=== PATIENT | female | born 1960 | race Caucasian/White ===

== ENCOUNTER 2016-10-26 06:16 | Day surgery (SDC) | payer OTHER ==
[2016-10-26] MEDS ORDERED: Sodium Chloride 0.9% 10 ML Syringe FLUSH PRN (07:00)
[2016-10-26] MEDS ORDERED: Lactated Ringers 1,000 ML IV SCH (07:00)
[2016-10-26] MEDS ORDERED: Lidocaine 1%/Sod Bicarbonate in NS 8.4% 1 ML Syringe PRN (07:00)
[2016-10-26] MEDS ORDERED: Lidocaine 1% 30 ML SDV ONE (07:04)
[2016-10-26] MEDS ORDERED: Bupivacaine 0.25% 10 ML SDV ONE (07:04)
[2016-10-26] MEDS ORDERED: fentaNYL 100 MCG/2 ML SDV ONE (07:15)
[2016-10-26] MEDS ORDERED: Lidocaine 1% 4 ML ONE (07:15)
[2016-10-26] MEDS ORDERED: Propofol 200 MG/20 ML SDV ONE ×2 (07:15→07:55)
[2016-10-26] MEDS ORDERED: Midazolam 1 MG/ML 2 ML SDV ONE (07:15)
--- NOTE | 2016-10-26 08:13 | PCM.PREANE ---
Preanesthetic Assessment - Anesthesia/Transfusion/Family Hx Anesthesia History: Prior Anesthesia Without Reaction Family History of Anesthesia Reaction: No Transfusion History: No Prior Transfusion(s) - Review of Systems General: No Symptoms Pulmonary: No Symptoms Cardiovascular: No Symptoms Gastrointestinal: No symptoms Neurological: Numbness (left hand) Other: Reports: None, Diabetes (does not check blood sugers) - Physical Assessment NPO Status Date: 10/25/16 NPO Status Time: 19:30 Pulse: 55 O2 Sat by Pulse Oximetry: 95 Respiratory Rate: 16 Blood Pressure: 125/62 Temperature: 36.3 C Vital Signs: Last Vital Signs Temp 36.3 C 10/26/16 06:20 Pulse 55 L 10/26/16 06:20 Resp 16 10/26/16 06:20 BP 125/62 10/26/16 06:20 Pulse Ox 95 10/26/16 06:20 Height: 1.7 m Weight: 109.769 kg ASA Class: 2 Mental Status: Alert & Oriented x3 Airway Class: Mallampati = 1 Dentition: Reports: Normal Dentition Thyro-Mental Finger Breadths: 3 Mouth Opening Finger Breadths: 3 ROM/Head Extension: Full Lungs: Clear to auscultation, Normal respiratory effort Cardiovascular: Regular Rate, Regular Rhythm, No Murmurs - Allergies Allergies/Adverse Reactions: Allergies Allergy/AdvReac Type Severity Reaction Status Date / Time No Known Allergies Allergy Verified 10/25/16 13:31 - Blood Blood Available: No Product(s) Available: None - Anesthesia Plan Pre-Op Medication Ordered: None - Acknowledgements Anesthesia Type Planned: MAC Pt an Appropriate Candidate for the Planned Anesthesia: Yes Alternatives and Risks of Anesthesia Discussed w Pt/Guardian: Yes Pt/Guardian Understands and Agrees with Anesthesia Plan: Yes PreAnesthesia Questionnaire HEENT History: Reports: Allergic rhinitis Other HEENT History: has glasses, partial Cardiovascular History: Reports: SOB on exertion Respiratory History: Reports: Asthma, Sleep apnea Gastrointestinal History: Reports: GERD Genitourinary History: Reports: None Musculoskeletal History: Reports: Arthritis Neurological History: Reports: None Psychiatric History: Reports: Other (see below) Other Psychiatric History: irritability Endocrine/Metabolic History: Reports: Diabetes, type II - Past Surgical History HEENT Surgical History: Reports: Other (see below) Other HEENT Surgeries/Procedures: sinus surgery GI Surgical History: Reports: Colonoscopy Female Surgical History: Reports: Hysterectomy, Oophorectomy Musculoskeletal Surgical History: Reports: Carpal tunnel, Other (see below) Other Musculoskeletal Surgeries/Procedures:: knee surgery - SUBSTANCE USE Smoking Status *Q: Current Every Day Smoker (1/2 PPD+ X 40 yrs) Tobacco Use Within Last Twelve Months: Cigarettes Second Hand Smoke Exposure: Yes Days Per Week of Alcohol Use: 0 Number of Drinks Per Day: 0 Total Drinks Per Week: 0 Recreational Drug Use History: No - HOME MEDS Home Medications: Home Meds Albuterol [Ventolin HFA] 1 - 2 puff INH Q4H PRN 08/23/16 [History] Sertraline [Zoloft] 1 tab PO DAILY 08/23/16 [History] metFORMIN [Glucophage XR] 1 tab PO DAILY 08/23/16 [History] Esomeprazole Magnesium [Nexium] 20 mg PO DAILY 10/25/16 [History] - CURRENT (IN HOUSE) MEDS Current Meds: Current Medications Lactated Ringer's (Ringers, Lactated) 1,000 mls @ 125 mls/hr IV ASDIRECTED SELVIN Stop: 10/26/16 23:00 Last Admin: 10/26/16 06:40 Dose: 125 mls/hr Lidocaine/Sodium Bicarbonate (Buffered Lidocaine 1% In Ns 8.4%) 0.25 ml .XX ONETIME PRN PRN Reason: Prior to IV Start Stop: 10/26/16 18:00 Last Admin: 10/26/16 06:40 Dose: 0.25 ml Sodium Chloride (Saline Flush) 10 ml FLUSH ASDIRECTED PRN PRN Reason: Keep Vein Open Stop: 10/26/16 18:00 Discontinued Medications Bupivacaine HCl (Sensorcaine-Mpf 0.25%) Confirm Administered Dose 10 ml .ROUTE .STK-MED ONE Stop: 10/26/16 07:05 Fentanyl (Sublimaze) Confirm Administered Dose 100 mcg .ROUTE .STK-MED ONE Stop: 10/26/16 07:16 Lidocaine HCl (Xylocaine-Mpf 1%) Confirm Administered Dose 4 mls @ as directed .ROUTE .STK-MED ONE Stop: 10/26/16 07:16 Lidocaine HCl (Xylocaine-Mpf 1%) Confirm Administered Dose 30 ml .ROUTE .STK- MED ONE Stop: 10/26/16 07:05 Midazolam HCl (Versed 1 Mg/Ml) Confirm Administered Dose 2 mg .ROUTE .STK-MED ONE Stop: 10/26/16 07:16 Propofol (Diprivan 20 Ml) Confirm Administered Dose 200 mg .ROUTE .STK-MED ONE Stop: 10/26/16 07:16 Propofol (Diprivan 20 Ml) Confirm Administered Dose 200 mg .ROUTE .STK-MED ONE Stop: 10/26/16 07:56 Preanesthetic Assessment - ANESTHESIA/TRANSFUSION/FAMILY HX Anesthesia/Transfusion History: Prior Anesthesia Family History of Anesthesia Reaction: No Intubation History: Unknown - PHYSICAL ASSESSMENT O2 Sat by Pulse Oximetry: 95 RR: 16 Vital Signs: Last Vital Signs Temp 36.3 C 10/26/16 06:20 Pulse 55 L 10/26/16 06:20 Resp 16 10/26/16 06:20 BP 125/62 10/26/16 06:20 Pulse Ox 95 10/26/16 06:20 Height: 1.7 m Weight: 109.769 kg NPO Status Date: 10/25/16 NPO Status Time: 19:30 - ALLERGIES Allergies/Adverse Reactions: Allergies Allergy/AdvReac Type Severity Reaction Status Date / Time No Known Allergies Allergy Verified 10/25/16 13:31
[2016-10-26 08:22] VITALS: BP 119/75
--- NOTE | 2016-10-31 11:40 | PCM.OPNOTE ---
- General Post-Op/Procedure Note Date of Surgery/Procedure: 10/26/16 Operative Procedure(s): left carpal tunnel release Pre Op Diagnosis: left median nerve compression neuropathy Post-Op Diagnosis: Same Anesthesia Technique: Local, MAC Primary Surgeon: Mitch Gutierrez Anesthesia Provider: Roberto Carlos Blanca [employer] Director: Tova Cantu EBL in mLs: 5 Complications: None Condition: Good
--- NOTE | 2016-10-31 12:08 | OR ---
DATE OF OPERATION: 10/26/2016 SURGEON: Mitch Gutierrez MD OPERATION PERFORMED: Left carpal tunnel release. PREOPERATIVE DIAGNOSIS: Left median nerve compression neuropathy. POSTOPERATIVE DIAGNOSIS: Left median nerve compression neuropathy. ANESTHESIA: Local MAC. ANESTHESIA PROVIDER: Roberto Carlos Blanca CRNA STRATEGIC DEVELOPMENT MANAGER: Tova Cantu PA-C ESTIMATED BLOOD LOSS: Less than 5 mL. COMPLICATIONS: None. CONDITION: Stable. DESCRIPTION OF PROCEDURE: The patient was identified in the preoperative holding area. Proper site was marked and identified by the surgeon. The patient was taken back to the operating theater, where after adequate anesthesia, the patient's left upper extremity was sterilely prepped and draped in the usual sterile fashion. OR- wide time-out was performed. The patient did not receive antibiotics as it was not indicated for soft tissue hand procedure. At this time, the left upper extremity had a local done with 1% lidocaine without epinephrine and 25% Marcaine without epinephrine to block both the palmar cutaneous branch of the median nerve and the incisional site using Garcia cardinal line and ulnar border of the fourth digit. At this time, once it was anesthetized, an Esmarch was used for tourniquet on the midforearm. Incision was made. Blunt dissection was taken down to the palmar cutaneous fascia. Palmar cutaneous fascia was divided. The transverse carpal ligament was identified. A small rent was made in the transverse carpal ligament. A Edinburgh elevator was placed distally and Cuney blade was used for resection of the transverse carpal ligament distally making sure to stop at the palmar fat, short of the palmar arch. At this time, it was found to be adequately released distally. Using tenotomy scissors, keeping the tips ulnar, the proximal portion of the transverse carpal ligament forearm fascia was then released and it was found to be adequately released both proximally and distally. Adequate saline was irrigated through the wound. A 4- 0 nylon simple suture was used for closure of the skin. The patient tolerated the procedure well and was sent to PACU in stable condition. MMODAL /[id number]
== END 2016-10-26 08:45 | disposition home or self-care (01) ==
LOC: JD.SDS 06:16
PROVIDERS: ATTEND Orthopaedic Surgery
DX: G56.02 Carpal tunnel syndrome, left upper limb (principal); J45.909 Unspecified asthma, uncomplicated; K21.9 Gastro-esophageal reflux disease without esophagitis
CPT/HCPCS: 64721; J2250; J3010; J7120; 01810; J2704

== ENCOUNTER 2017-07-18 07:03 | Day surgery (SDC) | payer OTHER ==
[~2017-07-18 07:03] MED LIST: Lactated Ringers 1,000 ML IV SCH; Lidocaine 1%/Sod Bicarbonate in NS 8.4% 1 ML Syringe PRN; Sodium Chloride 0.9% 10 ML Syringe FLUSH PRN
[2017-07-18] MEDS ORDERED: Lidocaine 1% 4 ML ONE (07:06)
[2017-07-18] MEDS ORDERED: Propofol 200 MG/20 ML SDV ONE (07:06)
--- NOTE | 2017-07-18 07:40 | PCM.PREANE ---
Preanesthetic Assessment - Anesthesia/Transfusion/Family Hx Anesthesia History: Prior Anesthesia Without Reaction Transfusion History: No Prior Transfusion(s) - Review of Systems General: No Symptoms Pulmonary: Cough, Other (Sleep Apnea with CPAP) Cardiovascular: Other (Murmur) Gastrointestinal: Other (GERD) Neurological: No Symptoms Other: Reports: Diabetes - Physical Assessment NPO Status Date: 07/17/17 NPO Status Time: 22:00 Pulse: 53 O2 Sat by Pulse Oximetry: 95 Respiratory Rate: 16 Blood Pressure: 124/64 Temperature: 36.3 C ASA Class: 3 Mental Status: Alert & Oriented x3 Airway Class: Mallampati = 1 Dentition: Reports: Partial Thyro-Mental Finger Breadths: 2 Mouth Opening Finger Breadths: 3 ROM/Head Extension: Full Lungs: Clear to Auscultation, Normal Respiratory Effort Cardiovascular: Regular Rate, Regular Rhythm, Murmurs (Found about a year ago. Denies chest pain, SOB, her primary doctor is aware. ) - Allergies Allergies/Adverse Reactions: Allergies Allergy/AdvReac Type Severity Reaction Status Date / Time No Known Allergies Allergy Verified 07/17/17 11:10 - Acknowledgements Anesthesia Type Planned: MAC Pt an Appropriate Candidate for the Planned Anesthesia: Yes Alternatives and Risks of Anesthesia Discussed w Pt/Guardian: Yes Pt/Guardian Understands and Agrees with Anesthesia Plan: Yes PreAnesthesia Questionnaire HEENT History: Reports: Allergic Rhinitis Other HEENT History: has glasses, partial Cardiovascular History: Reports: Heart Murmur, SOB on Exertion Respiratory History: Reports: Asthma, Sleep Apnea Gastrointestinal History: Reports: GERD, Hiatal Hernia, Other (See Below) Other Gastrointestinal History: dysphagia, epigastric pain Genitourinary History: Reports: Other (See Below) Other Genitourinary History: acute cystitis 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 Musculoskeletal History: Reports: Arthritis, Other (See Below) Other Musculoskeletal History: joint pain, chronic foot pain Neurological History: Reports: None Psychiatric History: Reports: Anxiety, Depression, Other (See Below) Other Psychiatric History: irritability Endocrine/Metabolic History: Reports: Diabetes, Type II Hematologic History: Reports: None Immunologic History: Reports: None Oncologic (Cancer) History: Reports: None Dermatologic History: Reports: None - Past Surgical History Head Surgeries/Procedures: Reports: None HEENT Surgical History: Reports: Naso-Sinus Surgery, Other (See Below) Other HEENT Surgeries/Procedures: sinus surgery Cardiovascular Surgical History: Reports: None Respiratory Surgical History: Reports: None GI Surgical History: Reports: Colonoscopy Female Surgical History: Reports: Hysterectomy, Oophorectomy Male Surgical History: Reports: None Endocrine Surgical History: Reports: None Neurological Surgical History: Reports: None Musculoskeletal Surgical History: Reports: Carpal Tunnel, Other (See Below) Other Musculoskeletal Surgeries/Procedures:: knee surgery, right wrist carpal tunnel release Oncologic Surgical History: Reports: None - SUBSTANCE USE Smoking Status *Q: Current Every Day Smoker Tobacco Use Within Last Twelve Months: Cigarettes Second Hand Smoke Exposure: Yes Days Per Week of Alcohol Use: 0 Number of Drinks Per Day: 0 Total Drinks Per Week: 0 Recreational Drug Use History: No - HOME MEDS Home Medications: Home Meds Albuterol [Ventolin HFA] 1 - 2 puff INH Q4H PRN 08/23/16 [History] Sertraline [Zoloft] 100 mg PO DAILY 08/23/16 [History] metFORMIN [Glucophage XR] 500 mg PO DAILY 08/23/16 [History] Esomeprazole Magnesium [Nexium] 20 mg PO DAILY 10/25/16 [History] Chrom Diamond/Brindal Ramirez [Garcinia Cambogia Tablet] 1 tab PO DAILY 07/17/17 [ History] Krill/Om-3/DHA/EPA/Phospho/Ast [Megared [place]-3 Krill Oil Sfgl] 1 cap PO DAILY 07/17/17 [History] Meloxicam [Meloxicam] 15 mg PO DAILY 07/17/17 [History] Nitrofurantoin 100 mg PO BID 07/17/17 [History] buPROPion [Wellbutrin XL] 150 mg PO DAILY 07/17/17 [History] - CURRENT (IN HOUSE) MEDS Current Meds: Current Medications Lactated Ringer's (Ringers, Lactated) 1,000 mls @ 125 mls/hr IV ASDIRECTED SELVIN Stop: 07/18/17 23:00 Lidocaine/Sodium Bicarbonate (Buffered Lidocaine 1% In Ns 8.4%) 0.25 ml .XX ONETIME PRN PRN Reason: Prior to IV Start Stop: 07/18/17 18:00 Sodium Chloride (Saline Flush) 10 ml FLUSH ASDIRECTED PRN PRN Reason: Keep Vein Open Stop: 07/18/17 18:00 Discontinued Medications Lidocaine HCl (Xylocaine-Mpf 1%) Confirm Administered Dose 4 mls @ as directed .ROUTE .STK-MED ONE Stop: 07/18/17 07:07 Propofol (Diprivan 20 Ml) Confirm Administered Dose 200 mg .ROUTE .STK-MED ONE Stop: 07/18/17 07:07
--- NOTE | 2017-07-18 08:16 | PCM.OPNOTE ---
- General Post-Op/Procedure Note Date of Surgery/Procedure: 07/18/17 Operative Procedure(s): Esophagogastroduodenoscopy with antral, gastric, and GE junction biopsies Findings: Duodenal gastric bile reflux, no hiatal hernia and otherwise normal endoscopic findings Pre Op Diagnosis: Dyspepsia with dysphagia, chronic GERD, and NSAIDS Post-Op Diagnosis: Duodenal gastric bile reflux Anesthesia Technique: MAC, Moderate Sedation Primary Surgeon: Jermaine Estevez Pathology: GE junction gastric and antral biopsies EBL in mLs: 0 Complications: None Condition: Good Free Text/Narrative:: After adequate IV sedation and analgesia was obtained with monitoring the patient was placed on her left side. Through a bite-block lubricated upper endoscope was inserted into the esophagus and advanced under direct vision to the stomach. Additional air was given here. There was bile within the stomach. The scope was advanced towards the antrum and then into the duodenum. The second and first parts of the duodenum were endoscopically normal. The antrum was unremarkable as well. I took a random biopsy for histologic review. In the retroflexed view the incisura was normal as well as the fundus and cardiac regions of the stomach. There was no hiatal hernia. There was a significant amount of bile within the stomach. There was no obvious gastritis but I took random biopsy of the body of the stomach for evaluation. I then withdrew the scope to the GE junction which was normal. There was no Sullivan's changes or chronic changes. A random biopsy was taken here. The body of the esophagus was unremarkable. The vocal cords were briefly visualized and were grossly normal. Bi Architect photographs were taken for the patient and for the medical record. There were no procedural complications.
--- NOTE | 2017-07-18 08:18 | PCM48HPAN ---
Post Anesthesia Note - EVALUATION WITHIN 48HRS OF ANESTHETIC Vital Signs in Normal Range: Yes Patient Participated in Evaluation: Yes Respiratory Function Stable: Yes Airway Patent: Yes Cardiovascular Function Stable: Yes Hydration Status Stable: Yes Pain Control Satisfactory: Yes Nausea and Vomiting Control Satisfactory: Yes Mental Status Recovered: Yes
[2017-07-18 09:17] VITALS: BP 145/73
== END 2017-07-18 08:50 | disposition home or self-care (01) ==
LOC: JD.SDS 07:03
PROVIDERS: ATTEND Surgery
DX: K21.0 Gastro-esophageal reflux disease with esophagitis (principal); J45.20 Mild intermittent asthma, uncomplicated; E11.9 Type 2 diabetes mellitus without complications; G47.33 Obstructive sleep apnea (adult) (pediatric); F41.8 Other specified anxiety disorders; Z79.84 Long term (current) use of oral hypoglycemic drugs; Z79.899 Other long term (current) drug therapy; F17.210 Nicotine dependence, cigarettes, uncomplicated
CPT/HCPCS: 43239; J7120; 00740; J2704

== ENCOUNTER 2017-09-02 07:30 | Emergency (ER) | payer OTHER ==
[2017-09-02 07:43] VITALS: BP 129/94
--- NOTE | 2017-09-02 07:48 | EDM.PDOC ---
ED HPI GENERAL MEDICAL PROBLEM - General Chief Complaint: Upper Extremity Injury/Pain Stated Complaint: RT HAND PAIN Time Seen by Provider: 09/02/17 07:30 Source of Information: Reports: Patient History Limitations: Reports: No Limitations - History of Present Illness INITIAL COMMENTS - FREE TEXT/NARRATIVE: This is a 57-year-old female. She comes us morning because she is having severe pain in her right arm. She cannot localize that pain but she does know that when she supinates or pronates her hand seems to make the pain worse. She is wanting to hold her hand in a neutral position and elbow at 90 where she is most comfortable. She says yesterday morning is when it started to hurt and she doesn't know if she slept on it funny but she denies falling or denies any trauma. It is continued to bother her this morning and she comes to the ER for evaluation. She describes her pain as 10 out of 10 but she is not unconscious. She has no history of gout. She's not noted any particular swelling. Today she has a hard time making a fist with the right hand whereas yesterday she could do that and she states that it just hurts when she tries to make a fist. When she does point to the area of pain it's over the distal ulnar bone in the wrist area. However she appears to be tender all over. She says when she made her bed yesterday morning is when she noticed the severe pain and other than that she denies any activity that might have caused this pain. She does have a history of previous carpal tunnel release to that right wrist and she denies any symptoms. Right Wrist Pain Score (Numeric/FACES): 10 - Related Data Allergies Allergy/AdvReac Type Severity Reaction Status Date / Time No Known Allergies Allergy Verified 09/02/17 07:35 Home Meds: Home Meds Albuterol [Ventolin HFA] 1 - 2 puff INH Q4H PRN 08/23/16 [History] Sertraline [Zoloft] 100 mg PO DAILY 08/23/16 [History] metFORMIN [Glucophage XR] 500 mg PO DAILY 08/23/16 [History] Esomeprazole Magnesium [Nexium] 20 mg PO DAILY 10/25/16 [History] Chrom Diamond/Brindal Ramirez [Garcinia Cambogia Tablet] 1 tab PO DAILY 07/17/17 [ History] Krill/Om-3/DHA/EPA/Phospho/Ast [Megared [place]-3 Krill Oil Sfgl] 1 cap PO DAILY 07/17/17 [History] Meloxicam 15 mg PO ASDIRECTED PRN 07/17/17 [History] Acetaminophen/oxyCODONE [Percocet 325-5 MG] 1 each PO Q4H PRN #10 tab 09/02/17 [ Rx] Past Medical History HEENT History: Reports: Allergic Rhinitis Other HEENT History: has glasses, partial Cardiovascular History: Reports: Heart Murmur, SOB on Exertion Respiratory History: Reports: Asthma, Sleep Apnea Gastrointestinal History: Reports: GERD, Hiatal Hernia, Other (See Below) Other Gastrointestinal History: dysphagia, epigastric pain Genitourinary History: Reports: Other (See Below) Other Genitourinary History: acute cystitis [employer] History: Reports: None Musculoskeletal History: Reports: Arthritis, Other (See Below) Other Musculoskeletal History: joint pain, chronic foot pain Neurological History: Reports: None Psychiatric History: Reports: Anxiety, Depression, Other (See Below) Other Psychiatric History: irritability Endocrine/Metabolic History: Reports: Diabetes, Type II Hematologic History: Reports: None Immunologic History: Reports: None Oncologic (Cancer) History: Reports: None Dermatologic History: Reports: None - Past Surgical History Head Surgeries/Procedures: Reports: None HEENT Surgical History: Reports: Naso-Sinus Surgery, Other (See Below) Other HEENT Surgeries/Procedures: sinus surgery Cardiovascular Surgical History: Reports: None Respiratory Surgical History: Reports: None GI Surgical History: Reports: Colonoscopy Female Surgical History: Reports: Hysterectomy, Oophorectomy Male Surgical History: Reports: None Endocrine Surgical History: Reports: None Neurological Surgical History: Reports: None Musculoskeletal Surgical History: Reports: Carpal Tunnel, Other (See Below) Other Musculoskeletal Surgeries/Procedures:: knee surgery, right wrist carpal tunnel release Oncologic Surgical History: Reports: None Social & Family History - Tobacco Use Smoking Status *Q: Current Every Day Smoker Second Hand Smoke Exposure: Yes - Caffeine Use Caffeine Use: Reports: Coffee - Alcohol Use Days Per Week of Alcohol Use: 0 Number of Drinks Per Day: 0 Total Drinks Per Week: 0 - Recreational Drug Use Recreational Drug Use: No Drug Use in Last 12 Months: No Review of Systems - Review of Systems Review Of Systems: See Below Constitutional: Denies: Chills, Fever Eyes: Reports: No Symptoms Ears: Reports: No Symptoms Nose: Reports: No Symptoms Mouth/Throat: Reports: No Symptoms Respiratory: Denies: Shortness of Breath, Cough Cardiovascular: Denies: Chest Pain GI/Abdominal: Denies: Abdominal Pain Genitourinary: Reports: No Symptoms Musculoskeletal: Reports: Other (As per history of present illness) Skin: Reports: No Symptoms Neurological: Reports: No Symptoms Psychiatric: Reports: No Symptoms ED EXAM, GENERAL - Physical Exam Exam: See Below Exam Limited By: No Limitations General Appearance: Alert, WD/WN, Mild Distress Eye Exam: Bilateral Eye: Normal Inspection Ears: Normal External Exam Nose: Normal Inspection Throat/Mouth: Normal Inspection, Normal Lips, Normal Voice, No Airway Compromise Head: Normocephalic Neck: Supple Respiratory/Chest: No Respiratory Distress GI/Abdominal: Soft Back Exam: Full Range of Motion Extremities: Other (Examination of the right upper extremity, she does not appear to have tenderness on palpation of her right hand but she does complain of pain in the right hand, she does make a partial fist without right hand but complains of pain in her right wrist when she does so, limited flexion and extension of the left wrist with pain over the distal ulnar area, she has diffuse soreness in her forearm area and over the head of the radial bone in the elbow, she can supinate and pronate and she can't extend her forearm but all of that seems to hurt, there is no obvious swelling or inflammation noted of the skin, she denies any shoulder discomfort. Her left upper extremity is without symptoms.) Neurological: Alert, Oriented Psychiatric: Anxious, Tearful Skin Exam: Warm, Dry Course - Vital Signs Last Recorded V/S: Last Vital Signs Temp 98.4 F 09/02/17 07:38 Pulse 52 L 09/02/17 07:38 Resp 13 09/02/17 07:38 BP 129/94 H 09/02/17 07:38 Pulse Ox 100 09/02/17 07:38 - Orders/Labs/Meds Orders: Active Orders 24 hr Category Date Time Status Communication Order [RC] STAT Care 09/02/17 08:53 Active Elbow Min 3V Rt [CR] Stat Exams 09/02/17 07:41 Taken Forearm 2V Rt [CR] Stat Exams 09/02/17 07:41 Taken Hand Comp Min 3V Rt [CR] Stat Exams 09/02/17 07:41 Taken Labs: Laboratory Tests 09/02/17 09/02/17 Range/Units 08:12 08:12 WBC 6.78 (3.98-10.04) K/mm3 RBC 4.54 (3.98-5.22) M/mm3 Hgb 13.4 (11.2-15.7) gm/L Hct 40.6 (34.1-44.9) % MCV 89.4 (79.4-94.8) fl MCH 29.5 (25.6-32.2) pg MCHC 33.0 (32.2-35.5) g/dl RDW Std Deviation 46.0 (36.4-46.3) fL Plt Count 218 (182-369) K/mm3 MPV 10.3 (9.4-12.3) fl Neut % (Auto) 69.6 (34.0-71.1) % Lymph % (Auto) 20.1 (19.3-51.7) % [place] % (Auto) 6.6 (4.7-12.5) % Eos % (Auto) 3.4 (0.7-5.8) Baso % (Auto) 0.3 (0.1-1.2) % Neut # (Auto) 4.72 (1.56-6.13) K/mm3 Lymph # (Auto) 1.36 (1.18-3.74) K/mm3 [place] # (Auto) 0.45 H (0.24-0.36) K/mm3 Eos # (Auto) 0.23 (0.04-0.36) K/mm3 Baso # (Auto) 0.02 (0.01-0.08) K/mm3 Sodium 142 (136-145) mEq/L Potassium 4.2 (3.5-5.1) mEq/L Chloride 105 (98-107) mEq/L Carbon Dioxide 28 (21-32) mEq/L Anion Gap 13.2 (5-15) BUN 12 (7-18) mg/dL Creatinine 0.7 (0.55-1.02) mg/dL Est Cr Clr Drug Dosing 87.27 mL/min Estimated GFR (MDRD) > 60 (>60) mL/min BUN/Creatinine Ratio 17.1 (14-18) Glucose 107 H (74-106) mg/dL Uric Acid 4.9 (2.6-6.0) mg/dL Calcium 8.9 (8.5-10.1) mg/dL Total Bilirubin 0.3 (0.2-1.0) mg/dL AST 14 L (15-37) U/L ALT 25 (14-59) U/L Alkaline Phosphatase 79 (46-116) U/L C-Reactive Protein 0.7 (<1.0) mg/dL Total Protein 7.0 (6.4-8.2) g/dl Albumin 3.6 (3.4-5.0) g/dl Globulin 3.4 gm/dL Albumin/Globulin Ratio 1.1 (1-2) Meds: Medications Discontinued Medications Generic Name Dose Route Start Last Admin Trade Name Freq PRN Reason Stop Dose Admin Oxycodone/Acetaminophen 1 tab 09/02/17 08:49 09/02/17 08:54 Percocet 325-5 Mg PO 09/02/17 08:50 1 tab ONETIME ONE Administration - Radiology Interpretation Free Text/Narrative:: X-rays of the hand and the wrist do not show any acute changes, there appears to be possibly an old intra-articular fracture of the distal radius but it is well healed, the forearm and elbow do not show any acute fractures. - Re-Assessments/Exams Free Text/Narrative Re-Assessment/Exam: 09/02/17 09:15 I spoke to the patient regarding her x-ray results. There is a suggestion she might have fractured her distal radius sometime in the past but nothing acute. Where she hurts over her distal ulnar at the wrist there does not appear to be any abnormality on the x-ray. The lab work shows a normal white count a uric acid that's normal and a C-reactive protein that is also normal and there is no electrolyte abnormalities noted. I spoke to her about this and suggested she follow up with Dr. Gutierrez' on Sunday for recheck regarding this pain she is having in her right upper extremity. She knows to call his office at 8 AM in the morning on Sunday for recheck. Departure - Departure Time of Disposition: 09:17 Disposition: Home, Self-Care 01 Condition: Fair Clinical Impression: Right wrist pain, Right forearm pain, Right elbow pain - Discharge Information Prescriptions: Acetaminophen/oxyCODONE [Percocet 325-5 MG] 1 each PO Q4H PRN #10 tab PRN Reason: Pain Referrals: Viviane Fraser PA [Primary Care Provider] - Mitch Gutierrez MD [Physician] - Forms: ED Department Discharge Additional Instructions: Keep the arm in the sling for comfort, use ice on and off to the wrist where it seems to hurt the most for the next 24 hours, take the pain medication as prescribed, follow up with Dr. Gutierrez' on Sunday by calling his office at 8 AM to be evaluated for your right arm pain, return to the ER if needed - My Orders Last 24 Hours: My Active Orders 09/02/17 07:41 Elbow Min 3V Rt [CR] Stat Forearm 2V Rt [CR] Stat Hand Comp Min 3V Rt [CR] Stat 09/02/17 08:53 Communication Order [RC] STAT - Assessment/Plan Last 24 Hours: My Active Orders 09/02/17 07:41 Elbow Min 3V Rt [CR] Stat Forearm 2V Rt [CR] Stat Hand Comp Min 3V Rt [CR] Stat 09/02/17 08:53 Communication Order [RC] STAT
[2017-09-02] MEDS ORDERED: Acetaminophen/oxyCODONE 325-5 MG Tab PO ONE (08:49)
--- NOTE | 2017-09-02 16:54 | CR ---
Right hand: Four views of the right hand were obtained. Comparison: No prior hand study. Well corticated bony densities are identified off the PIP joints of the third and fourth fingers which is felt to be incidental. Mild deformity is seen within the DIP joint of the second digit compatible with old injury. Less deformity is seen within the DIP joint of the third finger compatible with old injury. Mild degenerative change is seen within the CMC joint of the thumb. No acute fracture, dislocation or other bony abnormality is seen. Impression: 1. Slight degenerative change and findings of old injury. 2. Nothing acute is appreciated on right hand study. Diagnostic code #2
--- NOTE | 2017-09-02 16:54 | CR ---
Right elbow: Four views of the right elbow were obtained. Comparison: No prior study. Joint spaces are preserved. Minimal bony irregularity is seen on one view off the lateral epicondyle most likely due to stress reaction from normal tendon pull. No joint effusion is seen. No fracture, dislocation or other bony abnormality is identified. Impression: 1. Incidental finding. Nothing acute is seen on four-view right elbow study. Diagnostic code #2
--- NOTE | 2017-09-02 16:54 | CR ---
Right forearm: Two views of the right forearm were obtained. Comparison: No previous study. No fracture or other bony abnormality is seen. Impression: 1. No bony abnormality is seen on two-view right forearm study. Diagnostic code #1
== END 2017-09-02 09:40 | disposition home or self-care (01) ==
LOC: JD.ED 07:30
DX: M79.631 Pain in right forearm (principal); M25.521 Pain in right elbow; F17.200 Nicotine dependence, unspecified, uncomplicated; J45.909 Unspecified asthma, uncomplicated; K21.9 Gastro-esophageal reflux disease without esophagitis; F32.9 Major depressive disorder, single episode, unspecified; E11.9 Type 2 diabetes mellitus without complications; Z79.84 Long term (current) use of oral hypoglycemic drugs; Z79.899 Other long term (current) drug therapy
CPT/HCPCS: 36415; 73080; 73090; 73130; 80053; 84550; 85025; 86140; 99284; A9270